=== PATIENT | male | born 1965 | race Two or more races ===

== ENCOUNTER 2019-07-01 13:21 | Emergency (ER) | payer SELFPAY ==
[~2019-07-01] VITALS: Ht 170.2 cm; Wt 80.3 kg
[2019-07-01 13:30] VITALS: BP 149/95
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
== END 2019-07-01 14:53 | disposition home or self-care (01) ==
LOC: ER 13:21
DX: M54.5 Low back pain (principal); G89.11 Acute pain due to trauma; V89.2XXA Person injured in unspecified motor-vehicle accident, traffic, initial encounter; Y93.89 Activity, other specified; Y92.488 Other paved roadways as the place of occurrence of the external cause; Y99.8 Other external cause status
CPT/HCPCS: 72100; 99284